=== PATIENT | male | born 1955 | race Caucasian/White ===

== ENCOUNTER 2023-11-16 10:32 | Emergency (ER) | payer MEDICARE, OTHER, SELFPAY ==
[2023-11-16 10:41] VITALS: BP 134/69; PULSE 76; RESP 16; TEMP 37.3; O2SAT 99
[2023-11-16 10:46] VITALS: BP 134/69; PULSE 76; RESP 16; TEMP 37.3; O2SAT 99
--- NOTE | 2023-11-16 10:53 | ED.SKABFB ---
HPI - Skin/Abscess/Foreign Bdy General Chief complaint: Wound/Laceration Stated complaint: Right Arm Bug Bite Time Seen by Provider: 11/16/23 10:53 Source: patient, RN notes reviewed and old records reviewed Mode of arrival: ambulatory Limitations: no limitations History of Present Illness HPI narrative: 68-year-old male presents to the [facility] with a bug bite to his right arm x2 days Onset (ago): day(s) (2) Treatments prior to arrival: OTC topical medication Related Data Home Medications Medication Instructions Recorded Confirmed aspirin 81 mg tablet,delayed 81 mg PO DAILY 03/20/19 10/21/20 release (Adult Low Dose Aspirin) Aller-Karri 11/16/23 albuterol sulfate 90 mcg/actuation inhalation 11/16/23 aerosol inhaler apixaban 5 mg tablet (Eliquis) mg 11/16/23 flecainide 50 mg tablet mg 11/16/23 fluticasone fur. 200 mcg-umeclid inhalation 11/16/23 11/16/23 62.5 mcg-vilant 25 mcg inhalat.powder (Trelegy Ellipta) mometasone 0.1 % topical cream applic topical 11/16/23 mupirocin 2 % topical ointment topical 11/16/23 trazodone 100 mg tablet mg 11/16/23 Allergies Allergy/AdvReac Type Severity Reaction Status Date / Time Mgzpbck-MFM-LlE Reductase Allergy Unknown unknown Verified 10/21/20 11:07 Inhibitor [Kwlqcvv-Mhf-Iqq Reductase Inhibitor] Review of Systems Review of Systems: All systems reviewed & are unremarkable except as noted in HPI and below Constitutional: Constitutional: Reports no additional constitutional complaints Eyes: Eyes: Reports no additional eye complaints ENT: Reports system reviewed and no additional complaints, except as documented Cardiovascular: Cardiovascular: Reports no additional cardiovascular complaints, Denies chest pain and Denies dyspnea Respiratory: Respiratory: Reports no additional respiratory complaints, Denies chest congestion, Denies cough and Denies dyspnea Gastrointestinal: Gastrointestinal: Reports no additional gastrointestinal complaints, Denies abdominal pain, Denies nausea and Denies vomiting Musculoskeletal: Musculoskeletal: Reports no additional musculoskeletal complaints Integumentary/Breasts: Skin/Breast: Reports as per HPI Neurologic: Reports system reviewed and no additional complaints, except as documented Psychiatric: Psychiatric: Reports no additional psychiatric complaints Allergic/Immunologic: Allergic/Immunologic: Reports no additional allergic/immunologic complaints PMFSH Past Medical History Medical History Abnormal echocardiogram Diastolic dysfunction Dyslipidemia Essential hypertension Hx of transient ischemic attack (TIA) Surgical History Surgical History History of cholecystectomy History of knee surgery History of vasectomy Family History Family History Sibling Family history of kidney disease Family history of Parkinson's disease Patient's sister is in good health Patient's brother is in good health Mother Family history of malignant neoplasm of breast in first degree relative Depression Social History Social History Smoking status: Former smoker Smoking end date: 04/02/05 Alcohol intake: current Comments At the time of my signature, I reviewed and agree with the nursing past medical, surgical, social, and family history. There is no relevant family history pertinent to the patient complaint. Exam Const: General: cooperative, healthy appearing, comfortable, no acute distress, well developed, alert and well nourished Nutritional Appearance: well nourished Orientation/consciousness: patient oriented x3 Limitations: no limitations HENMT: Head: normal to inspection Ears: hearing grossly normal bilaterally and external ears normal Face/Nose/Sinus: Normal exte
== END 2023-11-16 11:10 | disposition home or self-care (01) ==
PROVIDERS: Emergency Provider Nurse Practitioner
DX: L03.113 Cellulitis of right upper limb (principal); Z87.891 Personal history of nicotine dependence; E78.5 Hyperlipidemia, unspecified; I10 Essential (primary) hypertension; Z86.73 Personal history of transient ischemic attack (TIA), and cerebral infarction without residual deficits; Z79.82 Long term (current) use of aspirin
CPT/HCPCS: 99213; G0463